=== PATIENT | male | born 1950 | race Caucasian/White ===

== ENCOUNTER 2019-06-22 10:36 | Outpatient (CLI) | payer MEDICARE ==
[2019-06-22 11:44] LABS: #Basophils 0.1 thou/uL (0.0-0.2); #Eosinphils 0.1 thou/uL (0.0-0.7); #Lymphocytes 2.9 thou/uL (1.20-3.40); #Monocytes 0.7 thou/uL (0.11-0.59); #Neutrophils 3.9 thou/uL (1.40-6.50); %Basophils 1.3 % (0.0-1.0); %Eosinophils 1.7 % (0.0-10.0); %Lymphocytes 37.9 % (21.0-51.0); %Monocytes 8.9 % (0.0-10.0); %Neutrophils 50.2 % (42.0-75.0); Hemoglobin 14.4 g/dL (14.0-18.0); Mean Corpuscular HGB CONC 33.2 g/dL (32.0-36.0); Mean Corpuscular Hemoglobin 28.9 pg (27.0-31.0); Mean Platelet Volume 8.6 fL (7.4-10.4); Platelet Count 216 thou/uL (130-400); RBC Distribution Width 15.1 % (11.5-14.5); Red Blood Cell (RBC) Count 4.97 mill/uL (4.70-6.10); White Blood Cell (WBC) Count 7.7 thou/uL (4.8-10.8)
[2019-06-22 11:52] LABS: Prothrombin Time 13.4 SEC (12.0-14.7)
[2019-06-22 12:21] LABS: ALT (SGPT) 29 U/L (8-55); AST (SGOT) 38 U/L (5-34); Alkaline Phosphatase 99 U/L (40-110); Anion Gap 13 mmol/L (10-20); BUN (Urea Nitrogen) 23 mg/dL (8.4-25.7); Bilirubin, Total 0.6 mg/dL (0.2-1.2); Calc. Creatinine Clearance 0 mL/min (70-130); Calcium 9.5 mg/dL (7.8-10.44); Carbon Dioxide 30 mmol/L (23-31); Chloride 99 mmol/L (98-107); Estimated GFR-MDRD 41; Globulin 3.5 g/dL (2.4-3.5); Glucose 201 mg/dL (80-115); Protein, Total 7.5 g/dL (5.8-8.1); Sodium 138 mmol/L (136-145)
== END 2019-06-22 10:37 | disposition home or self-care (01) ==
LOC: LABBT 10:36
PROVIDERS: ATTEND Internal Medicine Cardiovascular Disease
DX: Z01.812 Encounter for preprocedural laboratory examination (principal)
CPT/HCPCS: 80053; 85025; 85610

== ENCOUNTER 2019-06-26 05:41 | Observation (INO) | payer MEDICARE ==
[2019-06-22 10:59] VITALS: BMI 35.2
[2019-06-26] MEDS ORDERED: Diazepam 5 MG TAB ONE (07:27)
[2019-06-26] MEDS ORDERED: Fentanyl 100 MCG/2 ML VIAL ONE (08:16)
[2019-06-26] MEDS ORDERED: Midazolam HCl 2 mg/2 ml Vial ONE (08:17)
[2019-06-26] MEDS ORDERED: Nitroglycerin 100MG/250ML BOT 250 ML ONE (08:38)
[2019-06-26] MEDS ORDERED: Potassium Chloride 8 MEQ TAB PO SCH (09:00)
[2019-06-26] MEDS ORDERED: Iopamidol 370 76% 100 ML VIAL ONE (09:33)
[2019-06-26] MEDS ORDERED: Sodium Chloride 0.9% 1,000 ML IV SCH (11:39)
[2019-06-26] MEDS ORDERED: Nitroglycerin 0.4 MG TAB (25 Tab Bottle) SL PRN (11:39)
[2019-06-26] MEDS ORDERED: Acetaminophen/Codeine 30-300mg Tablet PO PRN ×2 (11:39)
[2019-06-26] MEDS ORDERED: traMADol HCl 50 MG TAB PO PRN (11:39)
[2019-06-26] MEDS ORDERED: TRULICITY 1.5 MG SCH (12:00)
[2019-06-26] MEDS ORDERED: Furosemide 80 MG TAB PO SCH (14:00)
--- NOTE | 2019-06-26 15:06 | CON ---
DATE OF CONSULTATION: HISTORY OF PRESENT ILLNESS: This is a 69-year-old gentleman who underwent cardiac catheterization today by Dr. Guardado. His cardiac history dates to 1999 when he underwent stenting of an LAD and was told that the largest stent available was placed in his LAD. Since that time, he was followed on a regular basis by his wood caulker in [place], undergoing stress tests every 2 years with his last stress test being 2 years ago and reportedly normal per the patient. He then moved up to the [facility], where he has been for the past year with his . He has had no anginal symptoms; however, did state that when he was working with the [employer] in April in the [facility], and exerting himself that he felt his heart beating strongly in his chest, but no chest pain. He also admits some dyspnea with activity, although admits that his lifestyle is quite inactive at this time since he is retired. His cardiovascular risk factors include hypertension, which reportedly well controlled. He also has dyslipidemia and he states his cholesterol is well controlled on drugs. He has diabetes mellitus with his A1c is running anywhere between 6.5 to 7.5. He has no smoking history for 40 years. He does have chronic kidney disease, for which he sees Dr. Bo Sood, with a GFR of about 40. PAST SURGICAL HISTORY: Includes: 1. Bilateral knee arthroscopies. 2. Remote tonsillectomy. 3. He has had the previously noted cardiac stent. 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 He is and accompanied by his today. REVIEW OF SYSTEMS: He has nocturia x1. He has had no previous symptoms to suggest a TIA or stroke. He has never known that he has had a heart attack. He was evaluated by Dr. Guardado, where a stress test showed a large inferior infarct with some jeffrey-infarct ischemia with an EF of about 25%, which prompted cardiac catheterization, which showed extensive and diffuse 3-vessel disease with complete occlusion of the right coronary artery and a single dominant branch on the inferior surface of the heart. This could have been a PDA or PL branch, but was difficult to be certain. Circumflex system consists of a small OM with about a 70% to 80% stenosis and a bifurcating ramus too small, but probably bypassable vessels. His LAD has a larger 1st diagonal with significant stenosis at its origin and then the LAD has significant mid and distal disease with potential targets being the distal LAD, the first diagonal, the ramus branches, and the inferior right coronary branch. Left ventriculogram confirmed an EF of about 20% to 25%. He did have uvzx-pi-yfymcmxu mitral regurgitation on echo. He does have peripheral edema. CURRENT MEDICATIONS: Include: 1. Tresiba 100 units every night. 2. Hydralazine b.i.d. 3. Valsartan 320 b.i.d. 4. Rosuvastatin nightly. 5. Prilosec daily. 6. Bystolic nightly. 7. Levothyroxine daily. 8. Trulicity 1.5 mg subcutaneous weekly. 9. Aspirin one a day. 10. Allopurinol two tablets daily. ALLERGIES: HE HAS ALLERGIES TO PROPOXYPHENE OR DARVOCET. PHYSICAL EXAMINATION: VITAL SIGNS: Today, 5 feet 10 inches, 242 pounds, blood pressure recorded as 148/80 with a heart rate of 70. GENERAL: He is right handed and he had a good Robel test on his left arm. NECK: Without carotid bruits. LUNGS: Clear to auscultation. CARDIAC: No murmurs. ABDOMEN: Quite obese and I do not palpate an aneurysm or organomegaly. EXTREMITIES: He has palpable dorsalis pedis pulses bilaterally. He has no peripheral edema at this time. DISCUSSION: I have had a long discussion with the patient and his . He does have multivessel coronary artery disease and probably has silent ischemia based on the fact that he has had an inferior PA probably in the last 2 years and was unaware of this. As such, I think he qualifies for more urgent revascularization given the other issues in the medical community at this time, I do not think he should be delayed indefinitely. His risk factors are such that his morbidity and mortality are increased with poor ejection fraction, obesity, chronic kidney disease, and diabetes. PLAN: We will plan on coronary artery bypass grafting next week. Job ID: [id number]
[2019-06-26] MEDS ORDERED: Aspirin 325 MG TAB PO SCH (16:00)
[2019-06-26] MEDS ORDERED: Allopurinol 100 MG TAB PO SCH (16:00)
[2019-06-26] MEDS: HumaLOG 300 UNITS/3 ML VIAL SC SCH (17:13)
[2019-06-26] MEDS ORDERED: Ezetimibe 10 MG TAB PO SCH (21:00)
[2019-06-26] MEDS ORDERED: Nebivolol HCl 5 MG TAB PO SCH (21:00)
[2019-06-26] MEDS ORDERED: Rosuvastatin 20 MG TAB PO SCH (21:00)
[2019-06-26] MEDS ORDERED: Insulin Glargine 60 UNITS in Pre-Filled Syringe 1 EACH SC SCH (21:00)
[2019-06-26] MEDS: Icosapent Ethyl 1 GM CAPSULE PO SCH (21:22)
[2019-06-27] MEDS ORDERED: Levothyroxine Sodium 112 MCG TAB PO SCH (06:00)
[2019-06-27 06:26] LABS: Anion Gap 15 mmol/L (10-20); BUN (Urea Nitrogen) 23 mg/dL (8.4-25.7); Calc. Creatinine Clearance 80 mL/min (70-130); Calcium 9.1 mg/dL (7.8-10.44); Carbon Dioxide 25 mmol/L (23-31); Chloride 102 mmol/L (98-107); Estimated GFR-MDRD 52; Glucose 114 mg/dL (80-115); Potassium 3.9 mmol/L (3.5-5.1); Sodium 138 mmol/L (136-145)
[2019-06-27 07:36] VITALS: BP 159/88; TEMP 97.7
[2019-06-27] MEDS ORDERED: Allopurinol 100 MG TAB PO SCH (09:00)
[2019-06-27] MEDS ORDERED: Aspirin 325 MG TAB PO SCH (09:00)
[2019-06-27] MEDS ORDERED: Valsartan 80 MG TAB PO SCH (09:00)
[2019-06-27] MEDS ORDERED: Furosemide 80 MG TAB PO SCH ×2 (09:00→14:00)
[2019-06-27] MEDS: HumaLOG 300 UNITS/3 ML VIAL SC SCH (09:06)
[2019-06-27] MEDS: Icosapent Ethyl 1 GM CAPSULE PO SCH (09:07)
== END 2019-06-27 09:31 | disposition home or self-care (01) ==
LOC: CCL 05:41 → 2SW 09:05
PROVIDERS: ADMIT Internal Medicine Cardiovascular Disease; ATTEND Internal Medicine Cardiovascular Disease
PROC: 4A023N7 Measurement of Cardiac Sampling and Pressure, Left Heart, Percutaneous Approach (ICD-10-PCS; principal; 2019-06-26)
PROC: B2111ZZ Fluoroscopy of Multiple Coronary Arteries using Low Osmolar Contrast (ICD-10-PCS; 2019-06-26)
DX: I25.10 Atherosclerotic heart disease of native coronary artery without angina pectoris (principal); I44.7 Left bundle-branch block, unspecified; I12.9 Hypertensive chronic kidney disease with stage 1 through stage 4 chronic kidney disease, or unspecified chronic kidney disease; E11.22 Type 2 diabetes mellitus with diabetic chronic kidney disease; N18.3 Chronic kidney disease, stage 3 (moderate); E66.9 Obesity, unspecified; Z68.34 Body mass index [BMI] 34.0-34.9, adult; Z79.4 Long term (current) use of insulin; Z79.82 Long term (current) use of aspirin; Z79.899 Other long term (current) drug therapy; Z88.8 Allergy status to other drugs, medicaments and biological substances; Z88.5 Allergy status to narcotic agent
CPT/HCPCS: 76942; 80048; 82962; 93458; C1769; 36415; 36416; 99152; G0378; J1644; J1815; J2250; J3010; Q9967

== ENCOUNTER 2019-06-30 09:56 | Inpatient (IN) | payer MEDICARE ==
[2019-06-30 10:43] VITALS: BMI 34.7
[2019-07-01] MEDS ORDERED: Midazolam HCl 5 mg/5 ml Vial ONE ×2 (06:25→10:12)
[2019-07-01] MEDS ORDERED: Fentanyl 250 MCG/5 ML VIAL ONE (06:25)
[2019-07-01] MEDS ORDERED: Heparin 10,000 UNITS/1 ML VIAL 30,000 UNITS in Sodium Chloride 0.9% 1,000 ML FS SCH (06:45)
[2019-07-01] MEDS ORDERED: Ketamine 50 MG/ML (10ML VIAL) ONE (07:20)
[2019-07-01] MEDS ORDERED: Insulin Regular 300 UNITS/3 ML VIAL ONE (08:38)
[2019-07-01] MEDS ORDERED: Albumin 5% 500 ML ONE ×2 (08:56→12:25)
[2019-07-01] MEDS ORDERED: PHENYLEPHRINE-NS 100 MCG/ML 10 ML SYRINGE ONE ×2 (08:56→09:56)
[2019-07-01] MEDS ORDERED: PROPOFOL 200 MG/20 ML VIAL ONE (09:56)
[2019-07-01] MEDS ORDERED: Heparin 30,000 units/30 ml VIAL ONE (09:56)
[2019-07-01] MEDS ORDERED: Papaverine 60 MG/2 ML VIAL ONE (09:56)
[2019-07-01] MEDS ORDERED: Sodium Bicarb 50 MEQ/50 ML Abboject 8.4% SYRINGE ONE ×2 (09:56→15:54)
[2019-07-01] MEDS ORDERED: Lidocaine 2% PF 5 ML VIAL ONE (09:56)
[2019-07-01] MEDS ORDERED: Potassium Chloride 60 MEQ/30 ML VIAL ONE (09:56)
[2019-07-01] MEDS ORDERED: Rocuronium Bromide 10 MG/ML (10ML VIAL) ONE (09:56)
[2019-07-01] MEDS ORDERED: Cardioplegic Soln 1,000 ML BAG ONE (09:56)
[2019-07-01] MEDS ORDERED: Vecuronium 10 MG VIAL ONE (09:56)
[2019-07-01] MEDS ORDERED: Magnesium Sulfate 1 GM/2 ML VIAL ONE (09:56)
[2019-07-01] MEDS ORDERED: Protamine Sulfate 250 MG/25 ML VIAL ONE (09:56)
[2019-07-01] MEDS ORDERED: Calcium Chloride 1 GM/10 ML Abboject SYRINGE ONE (09:56)
[2019-07-01] MEDS ORDERED: Lidocaine 1% PF 5 ML VIAL ONE (09:56)
[2019-07-01] MEDS ORDERED: Thrombin 5000 UNITS/5 ML VIAL ONE (09:56)
[2019-07-01] MEDS ORDERED: Aminocaproic Acid 5 GM/20 ML VIAL ONE (09:56)
[2019-07-01] MEDS ORDERED: DOPamine 400 MG/10 ML VIAL ONE (09:56)
[2019-07-01 12:08] LABS: Actual Bicarbonate (HCO3a) 21.4 mEq/L (22-28); Base Excess (BEa) -4.2 mEq/L (-2.0 to +3.0); Calcium, Ionized 1.17 mmol/L (1.12-1.30); Carboxyhemoglobin (COHb) 0.6 gm% (0.0-3.0); Hemoglobin (Hb) 12.6 g/dL (14.0-18.0); O2 Tension (PaO2) 94.6 mmHg (> 80.0); Potassium - ABG Lab 4.12 mmol/L (3.70-5.30); Puncture Site ALINE; pH, Arterial 7.34 (7.35-7.45)
[2019-07-01] MEDS ORDERED: Dextrose 50% Abboject 50 ML SYRINGE SLOW IVP PRN (12:18)
[2019-07-01] MEDS ORDERED: Dextrose 5% in Water 1,000 ML IV PRN (12:18)
[2019-07-01] MEDS ORDERED: Guaifenesin DM 100-10/5 ML UDCUP PO PRN (12:44)
[2019-07-01] MEDS ORDERED: niCARdipine 25 MG in Sodium Chloride 0.9% 250 ML 240 ML IVPB PRN (12:44)
[2019-07-01] MEDS ORDERED: Nitroglycerin 50 MG/250 ML BOT 250 ML IVPB PRN (12:44)
[2019-07-01] MEDS ORDERED: Hetastarch 6% 500 ML 500 ML IVPB PRN (12:44)
[2019-07-01] MEDS ORDERED: Acetaminophen 325 MG TAB PO PRN (12:44)
[2019-07-01] MEDS ORDERED: hydrALAZINE 20 MG/ML VIAL SLOW IVP PRN (12:44)
[2019-07-01] MEDS ORDERED: Post-Op Insulin Drip Protocol IVPB ONE (12:44)
[2019-07-01] MEDS ORDERED: Norepinephrine 8 MG/0.9% NS 250 ML IVPB PRN (12:44)
[2019-07-01] MEDS ORDERED: Bisacodyl 5 MG TAB PO PRN (12:44)
[2019-07-01] MEDS ORDERED: Fentanyl 100 MCG/2 ML VIAL SLOW IVP PRN ×2 (12:44)
[2019-07-01] MEDS ORDERED: Morphine 2 MG/ML SYRINGE SLOW IVP PRN (12:44)
[2019-07-01] MEDS ORDERED: Mag-Al 1200 mg/1200 mg/30 ML UDCUP PO PRN (12:44)
[2019-07-01] MEDS ORDERED: Bisacodyl 10 MG SUPP PR PRN (12:44)
[2019-07-01] MEDS ORDERED: Promethazine HCl 25 MG/ML VIAL IM PRN (12:44)
[2019-07-01] MEDS ORDERED: Ondansetron PF 4 MG/2 ML Vial IVP PRN (12:44)
[2019-07-01] MEDS ORDERED: Potassium Chloride 20 MEQ/100 ML PREMIX BAG IVPB PRN (12:44)
[2019-07-01 12:49] LABS: #Basophils 0.1 thou/uL (0.0-0.2); #Eosinphils 0.1 thou/uL (0.0-0.7); #Lymphocytes 2.5 thou/uL (1.20-3.40); #Monocytes 0.9 thou/uL (0.11-0.59); #Neutrophils 11.2 thou/uL (1.40-6.50); %Basophils 0.4 % (0.0-1.0); %Eosinophils 0.6 % (0.0-10.0); %Lymphocytes 16.9 % (21.0-51.0); %Monocytes 6.1 % (0.0-10.0); Hemoglobin 12.5 g/dL (14.0-18.0); Mean Corpuscular HGB CONC 33.6 g/dL (32.0-36.0); Mean Corpuscular Hemoglobin 29.2 pg (27.0-31.0); Mean Platelet Volume 9.1 fL (7.4-10.4); Platelet Count 176 thou/uL (130-400); RBC Distribution Width 15.4 % (11.5-14.5); Red Blood Cell (RBC) Count 4.27 mill/uL (4.70-6.10); White Blood Cell (WBC) Count 14.7 thou/uL (4.8-10.8)
[2019-07-01] MEDS ORDERED: Magnesium 2 GM/50 ML 2 GM in Premix Bag 1 BAG IVPB SCH (13:00)
[2019-07-01 13:02] LABS: INR-International Normal Ratio 1.5; PTT 37.2 SEC (22.9-36.1); Prothrombin Time 17.7 SEC (12.0-14.7)
[2019-07-01] MEDS: HUMULIN R 100 UNITS in Sodium Chloride 0.9% 100 ML IVPB SCH (13:04)
[2019-07-01 13:11] LABS: Anion Gap 10 mmol/L (10-20); BUN (Urea Nitrogen) 25 mg/dL (8.4-25.7); Calc. Creatinine Clearance 69 mL/min (70-130); Calcium 7.9 mg/dL (7.8-10.44); Carbon Dioxide 22 mmol/L (23-31); Chloride 109 mmol/L (98-107); Estimated GFR-MDRD 43; Glucose 165 mg/dL (80-115); Potassium 4.2 mmol/L (3.5-5.1); Sodium 137 mmol/L (136-145)
[2019-07-01] MEDS: DOPamine 400 MG/D5W 250 ML 250 ML IVPB PRN (13:18)
--- NOTE | 2019-07-01 13:35 | RAD ---
PORTABLE CHEST 1 VIEW: Date: 07/01/2019 Time: 1143 hours HISTORY: Postop open heart surgery, respiratory failure. FINDINGS/IMPRESSION: Changes of median sternotomy are present. There is an endotracheal tube with tip at the level of the clavicular heads. There is a right subclavian central line with tip in the projection of the right at rium. Mediastinal drain is seen. No lobar consolidation, pneumothoraces, or large effusions are ident ified. Monitor leads are present. POS: VLADISLAV
[2019-07-01] MEDS: CEFAZOLIN 2 GM in Premix Bag 1 BAG IVPB SCH ×2 (13:50→21:35)
--- NOTE | 2019-07-01 13:55 | OP ---
DATE OF PROCEDURE: 07/01/2019 PREOPERATIVE DIAGNOSES: Congestive heart failure, coronary artery disease. PROCEDURES PERFORMED: Coronary artery bypass graft x4, left internal mammary artery to a 1.5 mm diseased LAD, saphenous vein large to a 2 mm right posterior lateral to an infarcted inferior wall, saphenous vein more suitable size to a 1.5 mm diagonal and 1.5 mm proximal ramus. FINDINGS: The patient had cardiomegaly with mild LVH. DESCRIPTION OF PROCEDURE: After adequate anesthesia had been obtained, the patient was prepped and draped. Dr. Abebe did an endovascular vein harvest of the left greater saphenous vein while I performed a median sternotomy. After opening the sternum, left internal mammary artery was harvested. Heparin was given and mammary divided distally and passed behind a small remnant of thymus gland. Aorta was cannulated above the pericardial reflection and right atrium was cannulated with a large dual stage venous cannula, following which cardiopulmonary bypass was begun. The aorta was cross clamped and 1200 mL of cold [place] cardioplegic solution was given. Distal anastomoses were then completed, following which the cross-clamp was removed and the partial occluding clamp was placed. The diagonal and the posterolateral vein grafts were anastomosed to the aortic root and marked with rings, following which the partial occluding clamp was removed. The saphenous vein from the ramus was then anastomosed to the diagonal vein graft about 2 cm from the aortic root. Following this, a suture was required in the mammary anastomosis distally as well as in the ramus graft. Following this, the patient was weaned from cardiopulmonary bypass on dopamine. Cannula was removed and the aortic cannulation site secured with a 4-0 Prolene suture. Protamine seemed to control the bleeding rather well and 2 mediastinal drains were placed, following which the sternum was reapproximated with #7 interrupted wire using vancomycin paste on the sternal edges, platelet enriched blood, and platelet poor plasma. Subcutaneous tissue and skin were closed in layers. Job ID: [id number]
[2019-07-01 15:50] LABS: Actual Bicarbonate (HCO3a) 19.3 mEq/L (22-28); Base Excess (BEa) -7.1 mEq/L (-2.0 to +3.0); Calcium, Ionized 1.18 mmol/L (1.12-1.30); Carboxyhemoglobin (COHb) 0.5 gm% (0.0-3.0); Hemoglobin (Hb) 13.1 g/dL (14.0-18.0); O2 Tension (PaO2) 89.3 mmHg (> 80.0); pH, Arterial 7.28 (7.35-7.45)
[2019-07-01 15:54] LABS: Puncture Site ALINE
[2019-07-01 17:20] LABS: Hemoglobin 12.7 g/dL (14.0-18.0)
[2019-07-01 17:39] LABS: Potassium 4.4 mmol/L (3.5-5.1)
[2019-07-01] MEDS ORDERED: Sodium Bicarb 50 MEQ/50 ML Abboject 8.4% SYRINGE IVP SCH (18:15)
[2019-07-01] MEDS: Sodium Chloride 0.9% 1,000 ML IV SCH (18:31)
[2019-07-01] MEDS: HYDROcodone/Acetaminophen 5/325 mg Tablet PO PRN (19:43)
[2019-07-01] MEDS: Famotidine/PF 20 mg/2ml Vial SLOW IVP SCH (21:35)
[2019-07-01] MEDS: Rosuvastatin 20 MG TAB PO SCH (21:35)
--- NOTE | 2019-07-01 22:48 | EKG ---
Test Reason : POST CABG Blood Pressure : / mmHG Vent. Rate : 081 BPM Atrial Rate : 081 BPM P-R Int : 190 ms QRS Dur : 164 ms QT Int : 460 ms P-R-T Axes : 059 -08 -79 degrees QTc Int : 534 ms Sinus rhythm with Premature supraventricular complexes Left bundle branch block Abnormal ECG No previous ECGs available Confirmed by Drake BRASWELL ([id number]) on 07/01/2019 10:47:44 PM Referred By: BERNARDINO Confirmed By:Drake BRASWELL
[2019-07-02] MEDS: DOPamine 400 MG/D5W 250 ML 250 ML IVPB PRN (04:26)
[2019-07-02 04:36] LABS: #Lymphocytes 2.3 thou/uL (1.20-3.40); #Monocytes 1.2 thou/uL (0.11-0.59); #Neutrophils 12.6 thou/uL (1.40-6.50); %Basophils 0.3 % (0.0-1.0); %Eosinophils 0.1 % (0.0-10.0); %Lymphocytes 14.2 % (21.0-51.0); %Monocytes 7.5 % (0.0-10.0); Hemoglobin 12.4 g/dL (14.0-18.0); Mean Corpuscular HGB CONC 33.2 g/dL (32.0-36.0); Mean Corpuscular Volume 87.4 fL (78.0-98.0); Mean Platelet Volume 9.5 fL (7.4-10.4); Platelet Count 211 thou/uL (130-400); RBC Distribution Width 15.3 % (11.5-14.5); Red Blood Cell (RBC) Count 4.26 mill/uL (4.70-6.10); White Blood Cell (WBC) Count 16.2 thou/uL (4.8-10.8)
[2019-07-02 04:50] LABS: Anion Gap 16 mmol/L (10-20); BUN (Urea Nitrogen) 25 mg/dL (8.4-25.7); Calc. Creatinine Clearance 66 mL/min (70-130); Calcium 8.4 mg/dL (7.8-10.44); Carbon Dioxide 18 mmol/L (23-31); Chloride 109 mmol/L (98-107); Estimated GFR-MDRD 41; Glucose 146 mg/dL (80-115); Potassium 4.3 mmol/L (3.5-5.1); Sodium 139 mmol/L (136-145)
[2019-07-02] MEDS: HUMULIN R 100 UNITS in Sodium Chloride 0.9% 100 ML IVPB SCH (05:38)
[2019-07-02] MEDS: CEFAZOLIN 2 GM in Premix Bag 1 BAG IVPB SCH (05:48)
[2019-07-02] MEDS: HYDROcodone/Acetaminophen 5/325 mg Tablet PO PRN ×4 (05:49→21:01)
[2019-07-02] MEDS: Levothyroxine Sodium 112 MCG TAB PO SCH (05:49)
[2019-07-02] MEDS ORDERED: Insulin Glargine 23 UNITS in Pre-Filled Syringe 1 EACH SC SCH (08:00)
[2019-07-02] MEDS: Famotidine/PF 20 mg/2ml Vial SLOW IVP SCH ×2 (08:40→21:01)
--- NOTE | 2019-07-02 08:42 | RAD ---
PORTABLE CHEST 1 VIEW: DATE: 07/02/2019. TIME: 5:08 AM. HISTORY: Post open heart surgery. FINDINGS/IMPRESSION: Comparison is made with the exam of the previous day. There has been interval removal of the endotracheal tube. Right-sided central venous catheter. Travis ges of median sternotomy are again seen. Mediastinal drain remains in place. The heart size is enla rged. No lobar consolidation, pneumothoraces, or large effusions are seen. There is mild atelectati c change at the left lung base. POS: MZA
--- NOTE | 2019-07-02 08:58 | PRG ---
DATE OF SERVICE: 07/02/2019 SUBJECTIVE: Mr. Valladares sitting up in a chair. He has been sitting up in a chair for, he said, 6 or 7 hours. OBJECTIVE: VITAL SIGNS: Blood pressure 108/56, pulse 70. He is on low-dose dobutamine. LUNGS: Clear. CARDIAC: Normal S1, normal S2. ABDOMEN: Soft and nontender. EXTREMITIES: Mild edema. PERTINENT LABORATORY DATA: Hemoglobin is 12.4. Creatinine 1.69, which is his baseline. ASSESSMENT: 1. Status post coronary artery bypass grafting, multivessel coronary artery disease. 2. Left bundle-branch block with a wide QRS. 3. Ejection fraction 25%. PLAN: 1. He is on aspirin. 2. Low-dose dobutamine. 3. Start low-dose carvedilol prior to discharge. 4. We will need to consider a LifeVest as an outpatient. Ultimately, would benefit from biventricular defibrillator if the ejection fraction does not significantly improve. Job ID: [id number]
[2019-07-02] MEDS ORDERED: Aspirin 325 MG TAB PO SCH (09:00)
[2019-07-02] MEDS ORDERED: Prevnar 13-Val Conj/PF 0.5 ML SYRINGE IM ONE (09:00)
[2019-07-02] MEDS ORDERED: FLU VACC TS2019-20(65YR UP)/PF 180 MCG/0.5 ML SYRINGE IM ONE (09:00)
[2019-07-02] MEDS: Insulin Regular 300 UNITS/3 ML VIAL SC PRN ×3 (11:35→21:11)
[2019-07-02] MEDS: Sodium Chloride 0.9% 1,000 ML IV SCH (16:41)
[2019-07-02] MEDS: Rosuvastatin 20 MG TAB PO SCH (21:01)
[2019-07-03] MEDS: Insulin Regular 300 UNITS/3 ML VIAL SC PRN ×5 (01:17→21:17)
[2019-07-03 04:08] LABS: #Basophils 0.1 thou/uL (0.0-0.2); #Eosinphils 0.1 thou/uL (0.0-0.7); #Lymphocytes 2.4 thou/uL (1.20-3.40); #Monocytes 1.2 thou/uL (0.11-0.59); #Neutrophils 6.1 thou/uL (1.40-6.50); %Basophils 0.8 % (0.0-1.0); %Eosinophils 0.8 % (0.0-10.0); %Lymphocytes 24.1 % (21.0-51.0); %Monocytes 12.3 % (0.0-10.0); Hemoglobin 10.3 g/dL (14.0-18.0); Mean Corpuscular HGB CONC 33.2 g/dL (32.0-36.0); Mean Corpuscular Hemoglobin 29.4 pg (27.0-31.0); Mean Corpuscular Volume 88.6 fL (78.0-98.0); Mean Platelet Volume 9.1 fL (7.4-10.4); Platelet Count 142 thou/uL (130-400); RBC Distribution Width 15.1 % (11.5-14.5); Red Blood Cell (RBC) Count 3.52 mill/uL (4.70-6.10); White Blood Cell (WBC) Count 9.9 thou/uL (4.8-10.8)
[2019-07-03 04:22] LABS: Anion Gap 14 mmol/L (10-20); BUN (Urea Nitrogen) 25 mg/dL (8.4-25.7); Calc. Creatinine Clearance 68 mL/min (70-130); Calcium 7.8 mg/dL (7.8-10.44); Carbon Dioxide 19 mmol/L (23-31); Chloride 110 mmol/L (98-107); Estimated GFR-MDRD 44; Glucose 186 mg/dL (80-115); Potassium 4.3 mmol/L (3.5-5.1); Sodium 139 mmol/L (136-145)
[2019-07-03] MEDS: Levothyroxine Sodium 112 MCG TAB PO SCH (06:27)
[2019-07-03] MEDS: HYDROcodone/Acetaminophen 5/325 mg Tablet PO PRN ×3 (06:29→19:02)
--- NOTE | 2019-07-03 07:38 | RAD ---
PORTABLE CHEST 1 VIEW: DATE: 07/03/2019. TIME: 4:44 AM. HISTORY: Post open heart surgery. COMPARISON: Previous day. FINDINGS/IMPRESSION: Changes of median sternotomy, right-sided central line, and mediastinal drain are again seen. The he art size is stable. No lobar consolidation, pneumothoraces, or pleural effusions are seen. POS: DAWNAA
[2019-07-03] MEDS ORDERED: Mag-Al 1200 mg/1200 mg/30 ML UDCUP PO PRN (08:01)
[2019-07-03] MEDS ORDERED: Fentanyl 100 MCG/2 ML VIAL SLOW IVP PRN (08:01)
[2019-07-03] MEDS ORDERED: Mineral Oil ENEMA PR PRN (08:01)
[2019-07-03] MEDS ORDERED: Bisacodyl 5 MG TAB PO PRN (08:01)
[2019-07-03] MEDS ORDERED: Nitroglycerin 0.4 MG TAB (25 Tab Bottle) SL PRN (08:01)
[2019-07-03] MEDS ORDERED: Guaifenesin DM 100-10/5 ML UDCUP PO PRN (08:01)
[2019-07-03] MEDS ORDERED: Ondansetron PF 4 MG/2 ML Vial IVP PRN (08:01)
[2019-07-03] MEDS ORDERED: Bisacodyl 10 MG SUPP PR PRN (08:01)
[2019-07-03] MEDS ORDERED: Dextrose 50% Abboject 50 ML SYRINGE SLOW IVP PRN (08:16)
[2019-07-03] MEDS ORDERED: Dextrose 5% in Water 1,000 ML IV PRN (08:16)
[2019-07-03] MEDS: Famotidine 20 MG TAB PO SCH ×2 (08:33→20:49)
[2019-07-03] MEDS: Potassium Chloride 10 MEQ TAB PO SCH (08:34)
[2019-07-03] MEDS: Furosemide 40 MG TAB PO SCH ×2 (08:34→20:49)
[2019-07-03] MEDS: Aspirin 325 mg Enteric Coated Tablet PO SCH (08:34)
[2019-07-03] MEDS: Insulin Glargine 20 UNITS in Pre-Filled Syringe 1 EACH SC SCH ×2 (08:35→21:17)
--- NOTE | 2019-07-03 09:18 | PRG ---
DATE OF SERVICE: 07/03/2019 SUBJECTIVE: Mr. Valladares is doing great, sitting up in a chair. He is going to go to the telemetry today. No angina. No shortness of breath. OBJECTIVE: VITAL SIGNS: Blood pressure 103/62, pulse 84 and it is regular. LUNGS: Clear. CARDIAC: Normal S1, normal S2. ABDOMEN: Soft and nontender. EXTREMITIES: Malf-pr-fyjsghzb edema, it is being mobilized with furosemide. ASSESSMENT: 1. Depressed left ventricular function. 2. Left bundle-branch block. 3. Status post bypass surgery. 4. Diabetes. PLAN: 1. We will put him back on beta pily. 2. Resume valsartan as blood pressure allows. 3. Recommend he go home with a LifeVest. In view of the depressed left ventricular function, ultimately, will need a biventricular pacemaker defibrillator. This morning, can go ahead with the carvedilol. Job ID: [id number]
[2019-07-03] MEDS: Carvedilol 3.125 MG TAB PO SCH ×2 (10:21→16:17)
[2019-07-03] MEDS: Rosuvastatin 20 MG TAB PO SCH (20:48)
[2019-07-04 04:28] LABS: Anion Gap 14 mmol/L (10-20); BUN (Urea Nitrogen) 31 mg/dL (8.4-25.7); Calc. Creatinine Clearance 59 mL/min (70-130); Calcium 8.5 mg/dL (7.8-10.44); Carbon Dioxide 22 mmol/L (23-31); Chloride 103 mmol/L (98-107); Estimated GFR-MDRD 36; Glucose 183 mg/dL (80-115); Potassium 4.4 mmol/L (3.5-5.1); Sodium 135 mmol/L (136-145)
[2019-07-04] MEDS: Levothyroxine Sodium 112 MCG TAB PO SCH (05:27)
[2019-07-04] MEDS: Potassium Chloride 10 MEQ TAB PO SCH (08:49)
[2019-07-04] MEDS: Furosemide 40 MG TAB PO SCH ×2 (08:49→20:09)
[2019-07-04] MEDS: Carvedilol 3.125 MG TAB PO SCH (08:49)
[2019-07-04] MEDS: Aspirin 325 mg Enteric Coated Tablet PO SCH (08:49)
[2019-07-04] MEDS: Famotidine 20 MG TAB PO SCH ×2 (08:50→20:09)
[2019-07-04] MEDS: HYDROcodone/Acetaminophen 5/325 mg Tablet PO PRN ×2 (08:50→18:33)
[2019-07-04] MEDS: Insulin Glargine 20 UNITS in Pre-Filled Syringe 1 EACH SC SCH ×2 (08:51→20:16)
[2019-07-04] MEDS: Insulin Regular 300 UNITS/3 ML VIAL SC PRN ×4 (08:51→21:01)
[2019-07-04] MEDS: Carvedilol 6.25 MG TAB PO SCH (17:11)
[2019-07-04] MEDS: hydrALAZINE 25 MG TAB PO SCH (20:08)
[2019-07-04] MEDS: Rosuvastatin 20 MG TAB PO SCH (20:09)
[2019-07-05] MEDS: Levothyroxine Sodium 112 MCG TAB PO SCH (05:55)
[2019-07-05] MEDS: Potassium Chloride 10 MEQ TAB PO SCH (07:41)
[2019-07-05] MEDS: Famotidine 20 MG TAB PO SCH ×2 (07:41→21:26)
[2019-07-05] MEDS: Aspirin 325 mg Enteric Coated Tablet PO SCH (07:41)
[2019-07-05] MEDS: hydrALAZINE 25 MG TAB PO SCH ×3 (07:41→21:26)
[2019-07-05] MEDS: Carvedilol 6.25 MG TAB PO SCH ×2 (07:41→16:02)
[2019-07-05] MEDS: Furosemide 40 MG TAB PO SCH ×2 (07:41→21:26)
[2019-07-05] MEDS: HYDROcodone/Acetaminophen 5/325 mg Tablet PO PRN (07:42)
[2019-07-05] MEDS: Insulin Glargine 20 UNITS in Pre-Filled Syringe 1 EACH SC SCH (07:49)
[2019-07-05] MEDS ORDERED: Insulin Glargine 20 UNITS in Pre-Filled Syringe 1 EACH SC SCH (08:45)
[2019-07-05] MEDS ORDERED: Insulin Glargine 40 UNITS in Pre-Filled Syringe 1 EACH SC SCH (09:00)
[2019-07-05] MEDS ORDERED: Polyethylene Glycol 3350 17 GM Packet PO PRN (17:07)
[2019-07-05] MEDS ORDERED: Senokot S 8.6-50 MG TAB PO SCH ×2 (17:30→21:00)
--- NOTE | 2019-07-05 17:41 | CON ---
DATE OF CONSULTATION: 07/05/2019 REASON FOR CONSULTATION: Medical management. BRIEF HISTORY OF PRESENT ILLNESS: This is a 69-year-old male, with a past medical history of CAD, who had undergone a cardiac cath by Dr. Guardado as an outpatient. He was noted to have 3-vessel CAD with 70% to 80% stenosis of his circumflex, 100% in his RCA, and 90% in his LAD. He was admitted for CABG. Patient underwent CABG on the . Currently, the patient is doing well. He denies any chest pain or shortness of breath. Of note, patient does have a history of diabetes and his blood sugars in the hospital have been in the 130s to 200s. Patient states that normally his blood sugars are 130 at home. He says that he takes Tresiba 100 units subcu at bedtime and uses sliding scale insulin at home with Humalog starting at 25 units with a blood sugar of 200. The patient states over the past few days, he has been eating more desserts. He also states that he ate some fruits with grape and melon and cantaloupe this morning. He denies drinking any juice. He denies eating any potatoes, but says he plans on ordering some brown rice today. Patient also reports that he has been constipated and has not had a bowel movement since admission. PAST MEDICAL HISTORY: Gout, CAD, diabetes, hypertension, and hyperlipidemia. PAST SURGICAL HISTORY: Bilateral knee arthroscopies; tonsillectomy as a child; and ruptured Achilles tendon, status post repair. SOCIAL HISTORY: Patient is . He used to drink alcohol in his 20s, however, has not had a drink in 10 years. He does not smoke. He denies any illicit drug use. FAMILY HISTORY: Patient states his father had valve surgeries and had TIAs. CURRENT INPATIENT MEDICATIONS: 1. Glargine 20 units q.a.m. and 20 units at bedtime. 2. Aspirin 325 p.o. daily. 3. Coreg 6.25 mg p.o. b.i.d. 4. Famotidine 20 mg p.o. b.i.d. 5. Lasix 40 mg p.o. b.i.d. 6. Hydralazine 50 mg p.o. b.i.d. 7. Levothyroxine 112 mcg p.o. daily. 8. Rosuvastatin 20 mg p.o. at bedtime. REVIEW OF SYSTEMS: GENERAL: Patient denies fever, chills, or weight loss. ENT: Patient denies any hearing loss or tinnitus. EYES: Patient denies changes in his vision. THROAT: Patient denies sore throat. CVS: Denies chest pain or palpitations. LUNGS: Patient denies shortness of breath or cough. ABDOMEN: Denies abdominal pain, nausea, or vomiting. Positive constipation. : Denies frequent urination or urgency. EXTREMITIES. Denies any edema. DISCHARGE PHYSICAL EXAMINATION: VITAL SIGNS: Temperature 97.7, heart rate 75, respiratory rate 16, O2 saturation 95% on room air, and blood pressure 109/58. GENERAL: Patient is alert, awake, and oriented x3. CVS: Regular rate and rhythm with no murmurs, rubs, or gallops. LUNGS: Clear to auscultation bilaterally. ABDOMEN: Positive bowel sounds, soft, nontender, and nondistended. EXTREMITIES: No edema. PERTINENT LABORATORY DATA: CBC on 07/02: White blood cell count 9.9, hemoglobin 10.3, hematocrit 31.1, and platelet count 142. BMP on 07/03: Sodium 135, potassium 4.4, chloride 103, carbon dioxide 22, BUN 31, creatinine 1.90, and glucose 183. Chest x-ray on 07/02: No acute disease. ASSESSMENT AND PLAN: This is a 69-year-old male with past medical history of coronary artery disease, diabetes, and hypertension, who presented for a coronary artery bypass graft after he was found to have 3-vessel coronary artery disease. 1. Coronary artery disease, status post coronary artery bypass graft: Continue management by Cardiology with aspirin 325, Coreg, and Lasix. 2. Diabetes: Patient has required over 20 units of Humulin insulin. Agree with increasing his Lantus to 30 units at bedtime and 40 units q.a.m. I will change his sliding scale to Humalog sliding scale moderate. I have educated the patient to avoid starchy foods, grapes, and any dessert. If blood sugars continue to be persistently elevated, may consider resuming the patient's home sliding scale dose, which is higher than the scale that we are giving here. I will check a hemoglobin A1c in the morning. 3. Acute kidney injury: Patient's creatinine is noted to increase to 1.90. I will check a UA. Consider renal ultrasound, if patient has inadequate urine output. Hold off on any ROSARIO inhibitors or ARBs at this time. Consider decreasing Lasix dose, if creatinine continues to increase tomorrow. 4. Hypertension: Continue hydralazine 50 mg b.i.d. 5. Hypothyroidism: Continue levothyroxine 112 mcg p.o. daily. 6. Constipation: Likely secondary to [place]. Patient states that he will take Tylenol instead of [place] if possible. I will add senna b.i.d. and MiraLAX p.r.n. Thank you for this consultation. We will continue to follow. Job ID: [id number] [facility]OSPITALRamona
[2019-07-05] MEDS: HumaLOG 300 UNITS/3 ML VIAL SC PRN (17:45)
[2019-07-05] MEDS ORDERED: Insulin Glargine 30 UNITS in Pre-Filled Syringe 1 EACH SC SCH (21:00)
[2019-07-05] MEDS: Acetaminophen 325 MG TAB PO PRN (21:27)
[2019-07-05] MEDS: Rosuvastatin 20 MG TAB PO SCH (21:27)
[2019-07-05 22:12] LABS: Bacteria/HPF None Seen HPF (None Seen); Bilirubin Negative (Negative); Blood, Urine Negative (Negative); Clarity Clear (Clear); Glucose, Urine (Dipstick) Normal (Negative); Leukocyte Negative Leu/uL (Negative); Nitrite Negative (Negative); Protein, Urine (Dipstick) Negative (Neg-Trace); RBC/HPF 0-3 HPF (0-3); Squamous Epithelial None Seen HPF (0-3); Urobilinogen Normal mg/dL (Less than 2); WBC/HPF 0-3 HPF (0-3)
[2019-07-06 04:23] LABS: Hemoglobin A1c 7.6 % (4.0-6.0)
[2019-07-06] MEDS: Levothyroxine Sodium 112 MCG TAB PO SCH (05:19)
--- NOTE | 2019-07-06 06:51 | PRG ---
DATE OF SERVICE: 07/06/2019 The patient in general has had stable blood pressures, however, had one elevated blood pressure yesterday evening. His heart rate has been in the 70-80 range and I do not see any improvement in his weight on his current dose of Lasix. His new laboratory values include a hemoglobin A1c of 7.6, and his sugars have been elevated in the 170-260 range. His most recent creatinine on the 07/03 was 1.9 and is pending from this morning. His lungs are clear. His chest incision looks good and his legs have 2 to 3+ edema bilaterally similar to presentation. He is ambulating in the halls. We will await his creatinine, but the patient is probably approaching discharge today or tomorrow. Job ID: [id number]
[2019-07-06] MEDS: Carvedilol 6.25 MG TAB PO SCH (08:08)
[2019-07-06] MEDS: Famotidine 20 MG TAB PO SCH (08:09)
[2019-07-06] MEDS: Furosemide 40 MG TAB PO SCH (08:09)
[2019-07-06] MEDS: hydrALAZINE 25 MG TAB PO SCH (08:09)
[2019-07-06] MEDS: Acetaminophen 325 MG TAB PO PRN ×2 (08:09→12:38)
[2019-07-06] MEDS: Aspirin 325 mg Enteric Coated Tablet PO SCH (08:09)
[2019-07-06] MEDS: Potassium Chloride 10 MEQ TAB PO SCH (08:09)
[2019-07-06] MEDS: HumaLOG 300 UNITS/3 ML VIAL SC PRN (08:10)
[2019-07-06] MEDS ORDERED: Insulin Glargine 40 UNITS in Pre-Filled Syringe 1 EACH SC SCH (09:00)
[2019-07-06] MEDS ORDERED: Senokot S 8.6-50 MG TAB PO SCH (09:00)
[2019-07-06] MEDS ORDERED: Carvedilol 6.25 MG TAB PO SCH ×4 (09:00→17:00)
[2019-07-06] MEDS ORDERED: Valsartan 80 MG TAB PO SCH (09:00)
[2019-07-06 09:51] LABS: Anion Gap 11 mmol/L (10-20); BUN (Urea Nitrogen) 28 mg/dL (8.4-25.7); Calc. Creatinine Clearance 73 mL/min (70-130); Calcium 8.6 mg/dL (7.8-10.44); Carbon Dioxide 28 mmol/L (23-31); Chloride 101 mmol/L (98-107); Estimated GFR-MDRD 44; Glucose 283 mg/dL (80-115); Magnesium 1.9 mg/dL (1.6-2.6); Potassium 4.4 mmol/L (3.5-5.1); Sodium 136 mmol/L (136-145)
[2019-07-06] MEDS ORDERED: Insulin Glargine 4 UNITS in Pre-Filled Syringe 1 EACH SC SCH (10:00)
--- NOTE | 2019-07-06 10:09 | PRG ---
DATE OF SERVICE: SUBJECTIVE: Mr. Valladares is sitting in the chair, resting comfortably. OBJECTIVE: VITAL SIGNS: His blood pressure earlier this morning was 169/82, but most recently is 128/75, pulse 77. LUNGS: Clear. CARDIAC: Normal S1. Normal S2. ABDOMEN: Soft and nontender. EXTREMITIES: There is moderate edema. ASSESSMENT: 1. Status post bypass surgery. 2. Left ventricular ejection fraction 25%. 3. Left bundle-branch block. 4. Hypertension. PLAN: 1. Increase carvedilol dose to 12.5 mg twice a day. 2. Resume valsartan, start at 160 mg a day. 3. The patient is on aspirin. 4. The patient is on furosemide. 5. We are trying to arrange for LifeVest. Once a LifeVest is available, the patient could be released home. Job ID: [id number]
[2019-07-06 15:53] VITALS: BP 125/62; TEMP 97.9
--- NOTE | 2019-07-06 17:05 | DIS ---
DATE OF ADMISSION: 07/01/2019 DATE OF DISCHARGE: 07/06/2019 DISCHARGE DISPOSITION: Home. FOLLOWUP: 1. Follow up with primary care physician, Dr. Bridgette Monsivais, as scheduled. 2. Follow up with Cardiovascular, Dr. Hines and Cardiology, Dr. Guardado as scheduled. 3. Outpatient cardiac rehab. ALLERGIES: THE PATIENT IS ALLERGIC TO SULFA AND PROPOXYPHENE. DISCHARGE INSTRUCTIONS: Repeat basic metabolic profile after 1 week is recommended, primary care physician advised to follow. DISCHARGE MEDICATIONS: 1. Carvedilol 12.5 mg b.i.d. 2. Lasix 40 mg b.i.d. 3. MiraLAX 17 g as needed. 4. Potassium chloride 10 mEq daily. 5. Diovan 160 mg daily. 6. Aspirin 325 mg daily. 7. Allopurinol 200 mg daily. 8. Trulicity every 7 days. 9. Zetia 10 mg at bedtime. 10. Hydralazine 50 mg b.i.d. 11. Vascepa 2 g b.i.d. 12. Tresiba 100 units at bedtime. 13. Lispro insulin 25 units three times a day. 14. Levothyroxine 112 mcg daily. The patient was seen and examined on the day of discharge. Denies any new complaints. No chest pain, shortness of breath, palpitations reported. BRIEF HOSPITAL COURSE: The patient is a 69-year-old male, who was admitted for elective coronary artery bypass grafting. He underwent the above surgery on July 01, 2019. The details of surgery included left internal mammary artery to 1.5 mm diseased LAD, saphenous vein to 2 mm right posterolateral to an infarcted inferior wall, saphenous vein to diagonal and proximal ramus. Postoperatively, he was managed in the intensive care unit. Later on, he was transferred to the telemetry unit. The Hospitalist Team was consulted for medical management. He was also seen by Cardiology, Dr. Guardado. His medications have been optimized as discussed above. He will continue cardiac rehab as outpatient. FINAL DIAGNOSES: 1. Coronary artery disease, status post coronary artery bypass grafting x4. 2. Diabetes mellitus, type 2. 3. Chronic systolic heart failure, ejection fraction 25% range. 4. Left bundle-branch block. 5. Hypertension. 6. Hypothyroidism. 7. Constipation. 8. Chronic anemia. 9. Acute kidney injury on chronic kidney disease stage 3. 10. Hyponatremia. 11. Obesity with a BMI of 36.4. 12. Gout. LifeVest will be arranged prior to discharge. TIME SPENT: Time coordinating the discharge of this patient was 34 minutes. Job ID: [id number] MTDD
[2019-07-07] MEDS ORDERED: Insulin Glargine 44 UNITS in Pre-Filled Syringe 1 EACH SC SCH (09:00)
== END 2019-07-06 15:48 | disposition home or self-care (01) | DRG 236 ==
LOC: SURG A 07-01 05:39 → CCU 07-01 08:45 → 2NO 07-03 12:44
PROVIDERS: ADMIT Thoracic Surgery (Cardiothoracic Vascular Surgery); ATTEND Thoracic Surgery (Cardiothoracic Vascular Surgery)
PROC: 02100Z8 Bypass Coronary Artery, One Artery from Right Internal Mammary, Open Approach (ICD-10-PCS; principal; 2019-07-01)
PROC: 021209W Bypass Coronary Artery, Three Arteries from Aorta with Autologous Venous Tissue, Open Approach (ICD-10-PCS; 2019-07-01)
PROC: 06BQ4ZZ Excision of Left Saphenous Vein, Percutaneous Endoscopic Approach (ICD-10-PCS; 2019-07-01)
PROC: 5A1221Z Performance of Cardiac Output, Continuous (ICD-10-PCS; 2019-07-01)
DX: I25.10 Atherosclerotic heart disease of native coronary artery without angina pectoris (principal); I13.0 Hypertensive heart and chronic kidney disease with heart failure and stage 1 through stage 4 chronic kidney disease, or unspecified chronic kidney disease; I50.22 Chronic systolic (congestive) heart failure; N17.9 Acute kidney failure, unspecified; E87.1 Hypo-osmolality and hyponatremia; E11.22 Type 2 diabetes mellitus with diabetic chronic kidney disease; N18.3 Chronic kidney disease, stage 3 (moderate); I44.7 Left bundle-branch block, unspecified; E03.9 Hypothyroidism, unspecified; D63.1 Anemia in chronic kidney disease; E66.9 Obesity, unspecified; Z68.36 Body mass index [BMI] 36.0-36.9, adult; M10.9 Gout, unspecified; Z88.2 Allergy status to sulfonamides; Z88.8 Allergy status to other drugs, medicaments and biological substances; K59.03 Drug induced constipation; T40.605A Adverse effect of unspecified narcotics, initial encounter
CPT/HCPCS: 36415; 36416; 36430; 71045; 80048; 81001; 82805; 83036; 83735; 85025; 85610; 85730; 86850; 86900; 86901; 93005; 93010; 93798; 94002; J0690; J1265; J1642; J1644; J1815; J2001; J2250; J2405; J2440; J2704; J2720; J3010; J3370; J3475; J3480; J3490; P9045; S0017; S0028

== ENCOUNTER 2022-02-05 10:50 | Outpatient (CLI) | payer MEDICARE ==
[2022-02-05 11:51] LABS: #Basophils 0.1 10x3/uL (0.0-0.2); #Eosinphils 0.1 10x3/uL (0.0-0.5); #Monocytes 0.6 10x3/uL (0.0-1.1); #Neutrophils 3.7 10x3/uL (1.5-8.4); %Eosinophils 1.7 % (0.0-6.0); %Lymphocytes 35.1 % (18.0-47.0); %Monocytes 8.8 % (0.0-10.0); Hemoglobin 13.5 g/dL (13.5-17.5); Mean Corpuscular Hemoglobin 30.9 pg (27.0-33.0); Mean Corpuscular Volume 93.6 fl (81.2-95.1); Mean Platelet Volume 10.6 fl (7.4-10.4); Platelet Count 238 10x3/uL (150-450); RBC Distribution Width 14.6 % (11.5-14.5); Red Blood Cell (RBC) Count 4.37 10x6/uL (4.32-5.72); White Blood Cell (WBC) Count 7.1 10x3/uL (3.5-10.5)
[2022-02-05 12:33] LABS: ALT (SGPT) 16 U/L (8-55); AST (SGOT) 19 U/L (5-34); Alkaline Phosphatase 85 U/L (40-110); Anion Gap 20 mmol/L (10-20); BUN (Urea Nitrogen) 59 mg/dL (8.4-25.7); Bilirubin, Total 0.5 mg/dL (0.2-1.2); Calc. Creatinine Clearance 0 mL/min (70-130); Calcium 9.6 mg/dL (7.8-10.44); Carbon Dioxide 27 mmol/L (23-31); Chloride 95 mmol/L (98-107); Estimated GFR 24; Globulin 3.6 g/dL (2.4-3.5); Glucose 314 mg/dL (80-115); Potassium 4.6 mmol/L (3.5-5.1); Protein, Total 7.6 g/dL (5.8-8.1); Sodium 137 mmol/L (136-145)
== END 2022-02-05 10:51 | disposition home or self-care (01) ==
LOC: LABBT 10:50
PROVIDERS: ATTEND Surgery
DX: Z01.818 Encounter for other preprocedural examination (principal); K42.9 Umbilical hernia without obstruction or gangrene; I44.7 Left bundle-branch block, unspecified; R00.1 Bradycardia, unspecified; R94.31 Abnormal electrocardiogram [ECG] [EKG]
CPT/HCPCS: 80053; 85025; 93005; 93010